=== PATIENT | female | born 1945 | race Caucasian/White ===

== ENCOUNTER 2016-04-19 12:08 | Emergency (ER) | payer MEDICARE, OTHER ==
[2016-04-19 12:30] VITALS: BP 146/66
[2016-04-19] MEDS ORDERED: HYDROmorphone 2 MG/ML SDV IVPUSH ONE ×3 (12:33→13:54)
[2016-04-19] MEDS ORDERED: Ondansetron 4 MG/2 ML SDV IVPUSH ONE (12:34)
[2016-04-19] MEDS ORDERED: Sodium Chloride 0.9% 1,000 ML IV ONE (12:34)
[2016-04-19] MEDS ORDERED: HYDROmorphone 2 MG/ML SDV IM ONE (12:58)
[2016-04-19] MEDS ORDERED: LORazepam 2 MG/ML MDV IVPUSH PRN (14:35)
--- NOTE | 2016-04-19 15:00 | CR ---
INDICATION: Fall, right hip fracture. PELVIS WITH RIGHT HIP: Three images of the pelvis and right hip revealed apparent stabilization injections at the ala of the sacrum bilaterally. A comminuted fracture of the intertrochanteric area of the right femur is noted extending into the femoral neck with fairly severe deformity, including lateral angulation and distraction of the fracture fragments, producing offset. Mild degenerative changes are noted at the hip joint with the joint space fairly well preserved, but slightly narrowed compared with the left. IMPRESSION: Comminuted intertrochanteric - femoral neck fracture with deformity. MTDD
--- NOTE | 2016-04-19 15:01 | CR ---
INDICATION: Fall, right hip fracture. CHEST: Two frontal views of the chest were obtained supine 04/18/2016 and compared with 12/29/2010 and 11/01/2010, revealing the heart to be enlarged. There is some pulmonary vascular congestion which is partly due to the supine positioning, but could be on the basis of minimal or early CHF also. There is evidence of surgical clips both axilla. Mitral annular calcification is suggested. IMPRESSION: ASHD with the possibility of CHF unable to be entirely excluded with the supine positioning. MTDD
--- NOTE | 2016-04-20 03:14 | ER ---
DATE SEEN: 04/19/2016 TIME SEEN: The patient was seen at 1215 noon. HISTORY OF PRESENT ILLNESS: The patient fell in her driveway today. She has pain in her right hip. She had difficulty moving. She is brought in by ambulance. States she laid on the ground for about an hour until somebody drove by and called the ambulance. The patient has marked pain to right hip, does not lay on her right side because she has so much pain in her hip. PAST MEDICAL HISTORY: The patient is . She has been treated with prednisone for vasculitis. She has had angioplasty of left subclavian and brachial artery in [place], which was treated by using a coil for an aneurysm. She is status post bilateral mastectomy for breast cancer. Last MRI was 10/2015. Status post lumbar kyphoplasty, status post stenosis lumbar spinal canal, which is too compromised to repair surgically because of her health, but would otherwise have been repaired. An old T8-L1 fracture and previous 10/2015 a 30% compression fracture T6, chronic kidney disease stage III, hypertension, T6 fracture documented 05/2015 and 12/20/2015, rheumatoid arthritis treated with methotrexate, depression and anxiety, uses Ritalin (I am not sure why she uses it, perhaps for sleep issues), status post previous diagnosis of avascular necrosis right hip, now has probable hip fracture, previous benign mass in the uterus, and osteopenia. Known chronic obstructive lung disease. Previous documented congestive heart failure, cardiomyopathy, T9-T10 partial vertebral collapse, status post angiography and angioplasty left clavicular and brachial artery in [place] in December 2014. SOCIAL HISTORY: Former smoker, 15-pack years. FAMILY HISTORY: Breast cancer, CVA, aneurysm, COPD, and depression. SOCIAL HISTORY: Former smoker and no longer smokes. Alcohol rarely. No street drugs. MEDICATIONS: See chart. REVIEW OF SYSTEMS: Negative except for noted above. The patient has so much pain, she preferred not to talk about review of systems. PHYSICAL EXAMINATION: VITAL SIGNS: Blood pressure 146/66, heart rate 81 and regular, respirations 20, oxygen saturation 94% on 5 L, and temperature 36.7. GENERAL: The patient has extensive pain, lying on the left side. HEENT: PERRLA intact. Pharynx without abnormality. NECK: Supple. No bruits in neck. LUNGS: Clear to auscultation with rales posterior bases of lungs. HEART: S1, S2. No tachycardia. No murmur. ABDOMEN: Soft. No increased abdominal girth. No masses noted. EXTREMITIES: Extensive pain in right hip, she is reluctant to move. Gentle pressure on the trochanteric bursa, moderate pain. Any motion of the right leg causes pain. Presumed diagnosis of femoral fracture. Knees, she has abrasion on her knees, right knee, not left knee and dorsalis pedis pulse intact. Sensation intact to lower extremities. Deep tendon reflexes hypoactive. LABORATORY DATA: X-ray reveals a trochanteric fracture with displacement. PLAN: Status discussed with the orthopedic surgeon. The patient transferred to [place]. Medication given. She had Dilaudid 2 mg IV, Zofran 4 mg IV, flush with 1000 mL normal saline. EKG; normal sinus rhythm, left atrial enlargement, left ventricular hypertrophy. /[id number] SHILOH/MUKUND WALLACE
--- NOTE | 2016-04-27 03:36 | ER ---
DATE SEEN: 04/19/2016 TIME SEEN: The patient was seen at 1230 hours. HISTORY OF PRESENT ILLNESS: This woman fell down, has pain in the right hip. She was in the driveway at home. She was transferred to hospital by ambulance for further evaluation. PAST MEDICAL HISTORY: Of significance: Vasculitis and right hip avascular necrosis, documented VTEs, angioplasty of clavicular and brachial artery, post bilateral breast mastectomy with radiation and chemotherapy treatment, post radiation chemotherapy vasculitis. Previous history of CVA, depression, former smoker, has hypertension, chronic low back pain, COPD, rheumatoid arthritis. Other significant past medical history: The patient had a kyphoplasty of lumbar region. She had been on prednisone for 2 years because of her chronic rheumatoid arthritis, has recently documented on 12/19/2015, a 30% T6 compression fracture, old T8 fracture and L1 fractures of the spine. The patient has chronic pain. FAMILY HISTORY: Brother had aortic graft placement and 3-vessel CABG. CURRENT MEDICATIONS: 1. Methotrexate. 2. Prednisone. 3. Vitamin D. 4. Albuterol and ipratropium - DuoNeb. 5. Carvedilol. 6. Morphine. 7. MS Contin. 8. Gabapentin. 9. Neurontin. 10.Zoloft. ALLERGIES: Penicillin, sulfa, and tramadol. PHYSICAL EXAMINATION: GENERAL: Alert woman, is lying on her side. Reluctant to move her hip because of constant pain. VITAL SIGNS: Blood pressure 146/66, heart rate 81 and regular, oxygen saturation 94% on 5 L and 94% on 4 L, and 36.7 degrees centigrade. The patient has requested to go to [place]. Arrangements have been made for transfer to [place] for hip surgical intervention. IMAGING: X-ray reveals trochanteric fracture on the right side. DIAGNOSES: 1. Right trochanteric hip fracture secondary to a fall. 2. Stage 3 chronic kidney disease secondary to vasculitis. 3. Status post brachial and clavicular artery angioplasty [facility]. 4. Postradiation chemotherapy of breast cancer, bilateral mastectomy removal, complications. 5. Previous documented right hip avascular necrosis. 6. Previous venous thromboembolisms. EMERGENCY ROOM COURSE: The patient received 3 mg IV Dilaudid, flushed with saline, Zofran 4 mg IV, and a repeat, so a total of 4 mg Dilaudid for pain. LABORATORY RESULTS: CBC, troponin, CMP negative with slightly increased RDW of 16.2. White count 9500, PMNs 91, lymphs 8, monos 1, and no bands. Complete metabolic panel is normal, except for a troponin of 0.01. /[id number] LS/MODL
== END 2016-04-19 14:45 ==
LOC: FB.ED 12:08
DX: S72.141A Displaced intertrochanteric fracture of right femur, initial encounter for closed fracture (principal); N18.3 Chronic kidney disease, stage 3 (moderate); Z79.899 Other long term (current) drug therapy; Z88.0 Allergy status to penicillin; Z88.2 Allergy status to sulfonamides; Z88.8 Allergy status to other drugs, medicaments and biological substances; W19.XXXA Unspecified fall, initial encounter
CPT/HCPCS: 36415; 71010; 73502; 80053; 84484; 85025; 93005; 96361; 96372; 96374; 96375; 96376; 99284; 99285; J1170; J2405; J7040